=== PATIENT | male | born 1980 | race Two or more races ===

== ENCOUNTER 2024-06-06 02:28 | Emergency (ER) | payer OTHER ==
[~2024-06-06] VITALS: Ht 177.8 cm; Wt 95.5 kg
[2024-06-06 03:25] VITALS: BP 154/88; PULSE 107; RESP 20; TEMP 97.3; O2SAT 99
== END 2024-06-06 07:04 | disposition home or self-care (01) ==
LOC: EMS 02:28
DX: M25.572 Pain in left ankle and joints of left foot (principal); V29.888A Rider (driver) (passenger) of other motorcycle injured in other specified transport accidents, initial encounter; Y93.89 Activity, other specified; Y92.89 Other specified places as the place of occurrence of the external cause; Y99.8 Other external cause status
CPT/HCPCS: 99284